=== PATIENT | male | born 1970 | race Caucasian/White ===

== ENCOUNTER 2021-01-12 23:24 | Observation (INO) | payer BC, SELFPAY ==
--- NOTE | ~2021-01-12 | CT_ITS ---
EXAMINATION: CT abdomen pelvis w con DATE: 01/13/2021 03:02 INDICATION: Epigastric abdominal pain. Leukocytosis. TECHNIQUE: Computed tomography (CT) of the abdomen and pelvis was performed with 100 mL Omnipaque 350 intravenous contrast. Automated exposure control and iterative reconstruction technique were employe d. The dose-length product was 505.74 mGy-cm. COMPARISON: None. FINDINGS: The visualized portions of the lung bases demonstrate mild atelectasis. No pleural effusion . The heart size is normal. No pericardial effusion. The liver, gallbladder, spleen, pancreas, adrena l glands, and kidneys are normal. There are scattered diverticula in the colon. There is fat strandin g around a diverticulum of the transverse colon with foci of extraluminal gas immediately adjacent to the diverticulum, consistent with diverticulitis. The appendix is normal. There are no pathologicall y enlarged lymph nodes. There is no free intraperitoneal fluid. There is mild thoracolumbar spondylos is. IMPRESSION: 1. Acute diverticulitis of the transverse colon with microperforation. No abscess. Reviewed, dictated and finalized at location A. IMPRESSION: 1. Acute diverticulitis of the transverse colon with microperforation. No absce ss.
[2021-01-12 23:26] VITALS: BP 153/92; PULSE 103; RESP 18; TEMP 36.3; O2SAT 98
[2021-01-12 23:44] LABS: Basophils Absolute Auto 0.1 K/mm3 (0.0-0.1); Basophils Percent Auto 0.6 % (0.2-1.2); Eosinophils Absolute Auto 0.5 K/mm3 (0-0.3); Hematocrit 40.9 % (42.0-52.0); Immature Granulocyte Absolute 0.06 K/mm3 (0.00-0.031); Immature Granulocyte Percent A 0.4 % (0-0.5); Lymphocytes Absolute Auto 1.66 K/mm3 (0.9-3.2); Mean Corpuscular HGB Conc 34.2 g/dl (32-36); Mean Corpuscular Hemoglobin 33.4 pg (26-34); Mean Corpuscular Volume 97.6 fl (80-100); Mean Platelet Volume 9.2 fl (7.4-10.4); Monocytes Absolute Auto 1.1 K/mm3 (0.1-0.6); Monocytes Percent Auto 7.5 % (2.6-8.5); Neutrophils Absolute Auto 11.7 K/mm3 (1.3-6.7); Neutrophils Percent Auto 77.5 % (45.5-73.1); Platelet Count Result 231 k/mm3 (150-375); Red Blood Count 4.19 M/mm3 (4.6-6.20); Red Cell Distribution Width 12.6 % (11.5-14.5); White Blood Count 15.1 K/mm3 (4.5-10.0)
[2021-01-12 23:54] LABS: Alanine Aminotransferase 24 U/L (4-50); Albumin Level 4.6 g/dL (3.5-5.1); Alkaline Phosphatase 91 U/L (38-126); Anion Gap 11 mmol/L (8-16); Aspartate Amino Transferase 32 U/L (17-59); Bilirubin,Total 0.6 mg/dL (0.2-1.3); Blood Urea Nitrogen 16 mg/dL (9-20); Calcium 9.5 mg/dL (8.4-10.2); Carbon Dioxide 22 mmol/L (22-30); Chloride 102 mmol/L (98-107); Estimated CRCL calculation 83 ml/min; Estimated Glomerular Filt Rate > 60; Glucose 137 mg/dL (65-110); Lipase 64 U/L (23-300); Potassium 3.9 mmol/L (3.4-5.0); Sodium 135 mmol/L (137-145)
[2021-01-13] VITALS (8 sets, daily range): BP systolic 119–149; BP diastolic 47–88; PULSE 67–89; RESP 15–18; TEMP 36.2–36.7; O2SAT 94–99; BMI 33.2
[2021-01-13 01:44] LABS: Add Urine Microscopic? NO; Appearance Urine Clear (Clear); Bilirubin Urine Negative (Negative); Blood Urine Negative (Negative); Color Urine Yellow (Yellow); Glucose Urine UA Negative (Negative); Ketones Urine Negative (Negative); Leukocyte Esterase Ur Negative LEU/UL (Negative); Nitrate Urine Negative (Negative); Protein Urine Negative (Negative); Specific Grav Ur 1.024 (1.001-1.035); Urobilinogen Urine Negative mg/dL (<2.0)
--- NOTE | 2021-01-13 02:22 | ED.ABDPAIN ---
HPI - Abdominal Pain General Chief Complaint: Abdominal Pain Stated Complaint: abd pain - band in the middle of stomach Time Seen by Provider: 01/13/21 01:57 History of Present Illness HPI narrative: Patient presents with abdominal pain. Patient for symptoms started today he describes a band like sensation over his upper abdomen. Symptoms are constant, radiate across his upper abdomen, no clear aggravating or alleviating symptoms. He reports subjective fevers. He denies any nausea vomiting or diarrhea. Denies any chest pain or shortness of breath. Denies any prior abdominal surgeries. Related Data Home Medications Medication Instructions Recorded Confirmed atorvastatin 10 mg PO DAILY 01/13/21 01/13/21 trazodone 100 mg PO HS PRN 01/13/21 01/13/21 Allergies Allergy/AdvReac Type Severity Reaction Status Date / Time banana Allergy Anaphylaxis Verified 01/13/21 06:13 lisinopril AdvReac Unknown cough Verified 01/13/21 06:13 Review of Systems Review of Systems: CONSTITUTIONAL: Denies fever, chills, or sweats. EYES: Denies visual changes, redness, or discharge. ENT: Denies rhinorrhea, congestion, sore throat, or otalgia. CARDIOVASCULAR: Denies chest pain, palpitations, or edema. RESPIRATORY: Denies cough or dyspnea. GASTROINTESTINAL: Denies nausea, vomiting, or diarrhea. GENITOURINARY: Denies dysuria or hematuria. SKIN: Denies rash or itching. MUSCULOSKELETAL: Denies back pain, joint pain, or myalgia. NEUROLOGIC: Denies headache, numbness, dizziness, or weakness. PSYCHIATRIC: Denies anxiety or depression. All systems reviewed & are unremarkable except as noted in HPI and below [facility] Past Medical History Medical History (Updated 01/13/21 @ 04:48 by Víctor Foreman MD) Strabismus Family History Family History (Updated 01/13/21 @ 06:25 by Ilana Louise RN) Father Diabetes mellitus Grandparent Family history of Hodgkin's lymphoma Grandparent Colon cancer Grandparent Hypertension Other Family history of lung cancer Social History Social History Smoking status: Never smoker Second hand tobacco smoke exposure: Yes Alcohol intake: current Drinks per week: 16 Substance use: current Substance use type: marijuana Last use: last week Spiritual care concerns: No Exam Narrative: GENERAL: Well-appearing, well-nourished, and in no acute distress. HEAD: Normocephalic, atraumatic. EYES: PERRLA and EOMI. ENT: Nares clear, no rhinorrhea or epistaxis. Mucous membranes moist. NECK: Supple. No masses. No JVD CHEST: Clear to auscultation. No respiratory distress. No wheezes rales or rhonchi HEART: Regular rate and rhythm. No murmur heard. Normal peripheral pulses. ABDOMEN: Mild tenderness with palpation in the epigastric area no rebound or guarding. Soft, nondistended. EXTREMITIES: Normal range of motion. No edema. SKIN: Warm, dry, no rash. NEURO: No focal deficits. Alert and oriented x3. PSYCH: Normal mood and affect. Course Vital Signs Vital signs: Vital Signs Temperature 36.3 C L 01/12/21 23:26 Pulse Rate 103 H 01/12/21 23:26 Respiratory Rate 18 01/12/21 23:26 Blood Pressure 153/92 H 01/12/21 23:26 Pulse Oximetry 98 01/12/21 23:26 Temperature 36.7 C 01/13/21 06:00 Pulse Rate 75 01/13/21 06:03 Respiratory Rate 16 01/13/21 06:03 Blood Pressure 135/82 01/13/21 06:03 Pulse Oximetry 96 01/13/21 06:03 MDM - Abdominal Pain MDM Narrative Medical decision making narrative: Patient presents with upper abdominal pain. Patient overall looks clinically well exam was notable for tenderness in the upper abdomen. Labs and imaging obtained. Labs notable for leukocytosis imaging concerning for diverticulitis with a perforation. Given imaging findings patient was admitted to the hospitalist team for further management. Antibiotics initiated in the ER. Patient comfortable with inpatient plan. Lab
[2021-01-13] MEDS: MAG HYDROX/AL HYDROX/SIMETH 30 ML UDC PO (02:58)
[2021-01-13] MEDS: LIDOCAINE HCL 2% VISC SOLN 15 ML UDC 20 ML PO (02:58)
[2021-01-13] MEDS: SODIUM CHLORIDE 0.9% IV 1,000 ML 999 ML IV CONT (02:59)
[2021-01-13] MEDS: metroNIDAZOLE 500 MG/ISO 100ML 500 MG/100 ML BAG 100 MG IVPB (04:51)
--- NOTE | 2021-01-13 05:06 | PC.NURSE ---
[facility] contacted at Dr Foreman request.
--- NOTE | 2021-01-13 05:35 | PC.NURSE ---
Attempted to give report to [address] [place] [address] at this time. Was informed that receiving RN is with a pt and will call back when available.
--- NOTE | 2021-01-13 06:10 | ADMGEN ---
This patient, Den Luna, was admitted to Medical Room 348-01. Patient/family oriented to hospital policies and general routines including ID bracelet, bed and alarms, visiting hours, pain management, procedures, bathroom and other care routines, personal items, smoking policy, room service/diet, and visiting hours. Information on how to activate the Rapid Response Team has been discussed. Patient/Family are encouraged to report perceived risks to care and to ask questions if they do not understand what they are told or what they should do.
[2021-01-13] MEDS: SODIUM CHLORIDE 0.9% IV 1,000 ML 125 ML IV CONT (06:12)
--- NOTE | 2021-01-13 08:00 | PM.IMHP ---
H&P: HPI History of Present Illness Date/Time: 01/13/21 08:00 Chief Complaint: abdominal pain Narrative: patient is a 50-year-old male with past medical history of gout, dyslipidemia presenting with about a few hours of abdominal pain. Per patient yesterday around 4 or 5:00 p.m., he started experiencing a dull epigastric pain that was nonradiating. Nonexertional, not associated with any other symptoms. Although he does note having some intermittent chills. He came to the hospital to prevent pain from getting worse. Never had pain like this before. Of note his grandmother on his father's side had diverticulitis. Other than gout and cholesterol medication patient does not report taking anything currently. Past medical history: Gout, dyslipidemia Allergies: Banana, serious reactions; documented cough with lisinopril Medications: Allopurinol, atorvastatin; noted trazodone is documented, but patient did not state he takes this Family history: Diabetes in the family, diverticulitis in paternal grandmother Social history: Occasional alcohol, occasional marijuana, no other drugs, no tobacco ER course: Vitals unremarkable, leukocytosis to 15 CT abdomen and pelvis showing diverticulitis with micro perforation Evaluated by General surgery, not a candidate for surgery at this time blood cultures obtained, result pending patient has been on saline, and antibiotic in the emergency room Review of Systems Review of Systems: All systems reviewed & are unremarkable except as noted in HPI and below PMFSH Past Medical History Medical History (Updated 01/13/21 @ 08:50 by Lazara James MD) Strabismus Family History Family History Father Diabetes mellitus Grandparent Family history of Hodgkin's lymphoma Grandparent Colon cancer Grandparent Hypertension Other Family history of lung cancer Social History Social History Smoking status: Never smoker Second hand tobacco smoke exposure: Yes Alcohol intake: current Drinks per week: 16 Substance use: current Substance use type: marijuana Last use: last week Spiritual care concerns: No Meds Home Medications and Allergies Home Medications Medication Instructions Recorded Confirmed Type allopurinol 300 mg tablet 300 mg PO DAILY #90 tablet 11/01/20 01/13/21 Rx atorvastatin 10 mg PO DAILY 01/13/21 01/13/21 History trazodone 100 mg PO HS PRN 01/13/21 01/13/21 History Allergies Allergy/AdvReac Type Severity Reaction Status Date / Time banana Allergy Anaphylaxis Verified 01/13/21 06:13 lisinopril AdvReac Unknown cough Verified 01/13/21 06:13 Vital Signs Vital Signs - 24 hr 01/12/21 23:26 01/13/21 01:28 01/13/21 04:09 Temperature 97.4 F L Pulse Rate 103 H 89 82 Respiratory Rate 18 15 18 Blood Pressure 153/92 H 132/85 119/47 L Pulse Oximetry 98 97 95 01/13/21 04:57 01/13/21 06:00 01/13/21 06:03 Temperature 98.0 F Pulse Rate 73 71 75 Respiratory Rate 18 18 16 Blood Pressure 133/78 149/81 H 135/82 Pulse Oximetry 96 97 96 01/13/21 14:25 Temperature 97.2 F L Pulse Rate 67 Respiratory Rate 18 Blood Pressure 130/71 Pulse Oximetry 99 Exam Const: General: no acute distress Neck: Neck: no JVD Resp: Effort & Inspection: normal respiratory effort Auscultation: clear to auscultation bilaterally Cardio: Rate: regular rate Rhythm: regular rhythm GI: GI Palp: Yes Soft to palpation and No Tenderness to palpation present (GI) Other: some tenderness to gentle palpation in the epigastric area; Bowel sounds audible; No scars or bruising; No rigidity; negative Poon sign, negative psoas and Rovsing's sign, no rebound tenderness H&P: Results Labs Labs: Short CBC 01/12/21 Range/Units 23:33 WBC 15.1 H (4.5-10.0) K/mm3 Hgb 14.0 (14.0-18.0) g/dL Hct 40.9 L (42.0-52.0) % Plt Count
--- NOTE | 2021-01-13 08:43 | PM.CNGS ---
Assessment and Plan Assessment and plan (1) Diverticulitis of intestine with perforation without abscess or bleeding: Code(s): K57.80 - Diverticulitis of intestine, part unspecified, with perforation and abscess without bleeding Status: Acute Assessment and Plan: exam benign, cont conservative management c IV abx, serial exams, start clears History of Present Illness Consult details Consult date: 01/13/21 Reason for consult: abdominal pain Requesting physician: Magdy Garrido MD Narrative: Pt is a 50 y/o M presenting to ED c/o severe upper abdominal pain over last few days. Pt reports pain is sharp, constant and worst in LUQ. Pt reports associated anorexia, nausea. Pt also reports subjective f/c, weakness. Pt denies any previous episodes. Review of Systems Constitutional: Constitutional: Reports anorexia, Reports body ache(s), Reports chills, Denies excessive sweating, Reports fatigue, Reports fever(s), Denies increased appetite, Reports lethargy, Reports malaise, Reports poor appetite, Reports weakness, Denies weight gain and Denies weight loss Eyes: Eyes: Reports no additional eye complaints ENT: Reports system reviewed and no additional complaints, except as documented Cardiovascular: Cardiovascular: Reports no additional cardiovascular complaints Respiratory: Respiratory: Reports no additional respiratory complaints Gastrointestinal: Gastrointestinal: Reports as per HPI, Reports abdominal pain, Reports bloating, Denies change in bowel habits, Denies change in stool character, Denies constipation, Reports GI cramping, Denies early satiety, Denies heartburn, Denies diarrhea, Denies loose stools, Reports nausea, Denies vomiting and Denies hematemesis Genitourinary: Genitourinary: Reports no additional male genitourinary complaints Musculoskeletal: Musculoskeletal: Reports no additional musculoskeletal complaints Integumentary/Breasts: Skin/Breast: Reports system reviewed and no additional complaints, except as docu Neurologic: Reports system reviewed and no additional complaints, except as documented Psychiatric: Psychiatric: Reports no additional psychiatric complaints Endocrine: Endocrine: Reports no additional endocrine complaints Hematologic/Lymphatic: Hematologic/Lymphatic: Reports no additional hematologic/lymphatic complaints Allergic/Immunologic: Allergic/Immunologic: Reports no additional allergic/immunologic complaints PMFSH Past Medical History Medical History (Updated 01/13/21 @ 08:50 by Lazara James MD) Strabismus Family History Family History Father Diabetes mellitus Grandparent Family history of Hodgkin's lymphoma Grandparent Colon cancer Grandparent Hypertension Other Family history of lung cancer Social History Social History Smoking status: Never smoker Second hand tobacco smoke exposure: Yes Alcohol intake: current Drinks per week: 16 Substance use: current Substance use type: marijuana Last use: last week Spiritual care concerns: No Comments pt denies any previous abd surgery Meds Home Medications and Allergies Home Medications Medication Instructions Recorded Confirmed Type allopurinol 300 mg tablet 300 mg PO DAILY #90 tablet 11/01/20 01/13/21 Rx atorvastatin 10 mg PO DAILY 01/13/21 01/13/21 History trazodone 100 mg PO HS PRN 01/13/21 01/13/21 History Allergies Allergy/AdvReac Type Severity Reaction Status Date / Time banana Allergy Anaphylaxis Verified 01/13/21 06:13 lisinopril AdvReac Unknown cough Verified 01/13/21 06:13 Vital Signs Vital Signs - 24 hr 01/12/21 23:26 01/13/21 01:28 01/13/21 04:09 Temperature 36.3 C L Pulse Rate 103 H 89 82 Respiratory Rate 18 15 18 Blood Pressure 153/92 H 132/85 119/47 L Pulse Oximetry 98 97 95 01/13/21 04:57 01/13/21 06:00 01/13/21 06:03 Temperature
[2021-01-13] MEDS: HYDROmorphone HCL INJ (*CRX) 1 MG/ML SYR 0.5 MG IV PUSH ×3 (10:30→21:54)
[2021-01-13 11:35] LABS: Lactic Acid Reflex 0.9 mmol/L (0.7-2.1)
[2021-01-14] MEDS: SODIUM CHLORIDE 0.9% IV 1,000 ML 125 ML IV CONT ×2 (01:44→10:44)
[2021-01-14 05:52] VITALS: BP 128/76; PULSE 76; RESP 18; TEMP 36.1; O2SAT 96
[2021-01-14 06:11] LABS: Basophils Percent Auto 0.5 % (0.2-1.2); Eosinophils Absolute Auto 0.3 K/mm3 (0-0.3); Eosinophils Percent Auto 3.7 % (0-4.4); Hematocrit 36.3 % (42.0-52.0); Immature Granulocyte Absolute 0.03 K/mm3 (0.00-0.031); Immature Granulocyte Percent A 0.4 % (0-0.5); Lymphocytes Absolute Auto 1.46 K/mm3 (0.9-3.2); Lymphocytes Percent Auto 18.6 % (18.3-44.2); Mean Corpuscular HGB Conc 33.1 g/dl (32-36); Mean Corpuscular Hemoglobin 33.7 pg (26-34); Mean Platelet Volume 9.6 fl (7.4-10.4); Monocytes Absolute Auto 0.5 K/mm3 (0.1-0.6); Monocytes Percent Auto 6.9 % (2.6-8.5); Neutrophils Absolute Auto 5.5 K/mm3 (1.3-6.7); Neutrophils Percent Auto 69.9 % (45.5-73.1); Platelet Count Result 181 k/mm3 (150-375); Red Blood Count 3.56 M/mm3 (4.6-6.20); Red Cell Distribution Width 12.6 % (11.5-14.5); White Blood Count 7.9 K/mm3 (4.5-10.0)
[2021-01-14 06:28] LABS: Alanine Aminotransferase 14 U/L (4-50); Albumin Level 3.6 g/dL (3.5-5.1); Alkaline Phosphatase 58 U/L (38-126); Anion Gap 5 mmol/L (8-16); Aspartate Amino Transferase 20 U/L (17-59); Bilirubin,Total 0.8 mg/dL (0.2-1.3); Blood Urea Nitrogen 6 mg/dL (9-20); Calcium 8.9 mg/dL (8.4-10.2); Carbon Dioxide 26 mmol/L (22-30); Chloride 106 mmol/L (98-107); Estimated CRCL calculation 83 ml/min; Estimated Glomerular Filt Rate > 60; Glucose 107 mg/dL (65-110); Magnesium 2.3 mg/dL (1.6-2.3); Phosphorus 3.3 mg/dL (2.5-4.5); Potassium 4.3 mmol/L (3.4-5.0); Sodium 137 mmol/L (137-145)
[2021-01-14] MEDS: ENOXAPARIN 40 MG/0.4 ML SYRINGE SUB-Q (08:51)
[2021-01-14] MEDS: ATORVASTATIN 10 MG TABLET PO (08:51)
--- NOTE | 2021-01-14 10:20 | PM.PNGS ---
Progress Note: A&P Assessment and Plan (1) Diverticulitis of intestine with perforation without abscess or bleeding: Code(s): K57.80 - Diverticulitis of intestine, part unspecified, with perforation and abscess without bleeding Status: Acute Assessment and Plan: exam much improved, low residue diet, abx, home if ok c primary team and toni diet c po abx x 7 days, f/u 2 wks Subjective Subjective Date/Time Seen: 01/14/21 10:20 feels much better, no pain, toni clears Review of Systems Review of Systems: All systems reviewed & are unremarkable except as noted in HPI and below Exam Const: General: cooperative, healthy appearing, comfortable and no acute distress Nutritional Appearance: obese Orientation/consciousness: patient oriented x3 Resp: Effort & Inspection: normal respiratory effort Auscultation: clear to auscultation bilaterally Cardio: Rate: regular rate Rhythm: regular rhythm GI: Inspection: normal to inspection and non-distended GI Palp: Yes Soft to palpation and No Tenderness to palpation present (GI) Objective Data Vital Signs Vital Signs: Vital Signs - 24 hr 01/13/21 14:25 01/13/21 17:37 01/13/21 21:59 Temperature 36.2 C L 36.2 C L Pulse Rate 67 67 Respiratory Rate 18 17 Blood Pressure 130/71 137/88 Pulse Oximetry 99 94 99 01/14/21 05:52 Temperature 36.1 C L Pulse Rate 76 Respiratory Rate 18 Blood Pressure 128/76 Pulse Oximetry 96 Intake/Output Intake/Output: Intake & Output 01/11/21 01/12/21 01/13/21 01/14/21 23:59 23:59 23:59 23:59 Intake Total 3530 600 Output Total 1875 1550 Balance 1655 -950 Meds/Results Medications: Active Medications Generic Name Dose Route Start Last Admin Trade Name Freq PRN Reason Stop Dose Admin Atorvastatin Calcium 10 mg 01/13/21 09:00 01/14/21 08:51 Atorvastatin 10 Mg Tablet PO 10 mg DAILY DARRYL Administration Enoxaparin Sodium 40 mg 01/13/21 09:00 01/14/21 08:51 Enoxaparin 40 Mg/0.4 Ml Syringe SUB-Q 40 mg DAILY DARRYL Administration Hydromorphone HCl 0.5 mg 01/13/21 04:45 01/13/21 21:54 Hydromorphone Hcl Inj (*Crx) 1 Mg/Ml Syr IV PUSH 0.5 mg Q4H PRN Administration Pain Rated 7-10 Sodium Chloride 1,000 mls @ 125 mls/hr 01/13/21 04:45 01/14/21 01:44 Normal Saline Iv IV CONT 125 mls/hr .Q8H DARRYL Administration Piperacillin Sod/Tazobactam Sod 4.5 gm in 100 mls @ 200 mls/hr 01/13/21 10:00 01/14/21 06:15 Zosyn 4.5 Gm/D5w 100 Ml IVPB Infused Q6HR DARRYL Infusion Radiology Results: ITS Impressions Abdomen/Pelvis CT 01/13/21 07:58 IMPRESSION: 1. Acute diverticulitis of the transverse colon with microperforation. No abscess. Labs Labs: Laboratory Results - last 24 hr 01/13/21 01/14/21 01/14/21 11:05 05:38 05:38 WBC 7.9 RBC 3.56 L Hgb 12.0 L Hct 36.3 L MCV 102.0 H MCH 33.7 MCHC 33.1 RDW 12.6 Plt Count 181 MPV 9.6 Immature Gran % (Auto) 0.4 Neut % (Auto) 69.9 Lymph % (Auto) 18.6 [place] % (Auto) 6.9 Eos % (Auto) 3.7 Baso % (Auto) 0.5 Lymph # (Auto) 1.46 [place] # (Auto) 0.5 Eos # (Auto) 0.3 Baso # (Auto) 0.0 Abs Immat Gran (auto) 0.03 Absolute Neuts (auto) 5.5 Absolute Nucleated RBC 0.0 Nucleated RBC % 0.0 Sodium 137 Potassium 4.3 Chloride 106 Carbon Dioxide 26 Anion Gap 5 L BUN 6 L D Creatinine 0.90 Estim Creat Clear Calc 83 Estimated GFR > 60 Glucose 107 Lactic Acid 0.9 Calcium 8.9 Phosphorus 3.3 Magnesium 2.3 Total Bilirubin 0.8 AST 20 ALT 14 Alkaline Phosphatase 58 Total Protein 7.0 Albumin 3.6
--- NOTE | 2021-01-14 11:58 | PM.IMPN ---
Progress Note: A&P Assessment and Plan (1) Diverticulitis: Code(s): K57.92 - Diverticulitis of intestine, part unspecified, without perforation or abscess without bleeding Status: Acute Assessment and Plan: Leukocytosis to 15, and CT abdomen pelvis showing diverticulitis with micro perforation Blood cultures negative to date Was initiated Zosyn 01/13 Continue IV hydration running at 125 mL/hr of normal saline Given micro perforation, surgery was consulted from the emergency room, however they report the exam is benign, and would opt for conservative management; discussed this in detail with patient, he is in the amenable. Given improvement in his pain, plan per surgery with low residue diet, antibiotics, and DC home later today with follow-up in 2 weeks. Will continue antibiotics for next 7 days (2) Essential (primary) hypertension: Code(s): I10 - Essential (primary) hypertension Status: Acute Assessment and Plan: Blood pressure well controlled here, will continue to monitor Subjective Date/time seen: 01/14/21 11:58 Abdominal pain much improved. No nausea or vomiting. Tolerating clear liquids. Hemodynamically stable. Afebrile. Review of Systems Review of Systems: All systems reviewed & are unremarkable except as noted in HPI and below Exam Narrative: Gen: Alert, NAD Abd: Soft, NT, ND Heart: RRR Lungs: CTAB Ext: No lower extremity edema Objective Data Vital Signs Vital Signs: Vital Signs - 24 hr 01/13/21 14:25 01/13/21 17:37 01/13/21 21:59 Temperature 97.2 F L 97.1 F L Pulse Rate 67 67 Respiratory Rate 18 17 Blood Pressure 130/71 137/88 Pulse Oximetry 99 94 99 01/14/21 05:52 Temperature 97 F L Pulse Rate 76 Respiratory Rate 18 Blood Pressure 128/76 Pulse Oximetry 96 Intake/Output Intake/Output: Intake & Output 01/11/21 01/12/21 01/13/21 01/14/21 23:59 23:59 23:59 23:59 Intake Total 3530 1840 Output Total 1875 1825 Balance 1655 15 Meds/Results Medications: Active Medications Generic Name Dose Route Start Last Admin Trade Name Freq PRN Reason Stop Dose Admin Atorvastatin Calcium 10 mg 01/13/21 09:00 01/14/21 08:51 Atorvastatin 10 Mg Tablet PO 10 mg DAILY DARRYL Administration Enoxaparin Sodium 40 mg 01/13/21 09:00 01/14/21 08:51 Enoxaparin 40 Mg/0.4 Ml Syringe SUB-Q 40 mg DAILY DARRYL Administration Hydromorphone HCl 0.5 mg 01/13/21 04:45 01/13/21 21:54 Hydromorphone Hcl Inj (*Crx) 1 Mg/Ml Syr IV PUSH 0.5 mg Q4H PRN Administration Pain Rated 7-10 Sodium Chloride 1,000 mls @ 125 mls/hr 01/13/21 04:45 01/14/21 10:44 Normal Saline Iv IV CONT 125 mls/hr .Q8H DARRYL Administration Piperacillin Sod/Tazobactam Sod 4.5 gm in 100 mls @ 200 mls/hr 01/13/21 10:00 01/14/21 06:15 Zosyn 4.5 Gm/D5w 100 Ml IVPB Infused Q6HR DARRYL Infusion Radiology Results: ITS Impressions Abdomen/Pelvis CT 01/13/21 07:58 IMPRESSION: 1. Acute diverticulitis of the transverse colon with microperforation. No abscess. Labs Labs: Laboratory Results - last 24 hr 01/14/21 01/14/21 05:38 05:38 WBC 7.9 RBC 3.56 L Hgb 12.0 L Hct 36.3 L MCV 102.0 H MCH 33.7 MCHC 33.1 RDW 12.6 Plt Count 181 MPV 9.6 Immature Gran % (Auto) 0.4 Neut % (Auto) 69.9 Lymph % (Auto) 18.6 [place] % (Auto) 6.9 Eos % (Auto) 3.7 Baso % (Auto) 0.5 Lymph # (Auto) 1.46 [place] # (Auto) 0.5 Eos # (Auto) 0.3 Baso # (Auto) 0.0 Abs Immat Gran (auto) 0.03 Absolute Neuts (auto) 5.5 Absolute Nucleated RBC 0.0 Nucleated RBC % 0.0 Sodium 137 Potassium 4.3 Chloride 106 Carbon Dioxide 26 Anion Gap 5 L BUN 6 L D Creatinine 0.90 Estim Creat Clear Calc 83 Estimated GFR > 60 Glucose 107 Calcium 8.9 Phosphorus 3.3 Magnesium 2.3 Total Bilirubin 0.8 AST 20 ALT 14 Alkaline Phosphatase 58 Total Protein 7.0 Albumin 3.6
--- NOTE | 2021-01-14 12:46 | PM.DS ---
DS: Admitting Diagnosis Discharge Date 01/14/2021 Admitting Diagnosis abdominal pain acute diverticulitis DS: Discharge Diagnosis Discharge Diagnosis (1) Diverticulitis of intestine with perforation without abscess or bleeding: Code(s): K57.80 - Diverticulitis of intestine, part unspecified, with perforation and abscess without bleeding Status: Acute (2) Leukocytosis: Qualifiers: Leukocytosis type: unspecified Qualified Code(s): D72.829 - Elevated white blood cell count, unspecified Code(s): D72.829 - Elevated white blood cell count, unspecified Status: Acute (3) Essential (primary) hypertension: Code(s): I10 - Essential (primary) hypertension Status: Acute (4) Gout, unspecified: Code(s): M10.9 - Gout, unspecified Status: Acute (5) Mixed hyperlipidemia: Code(s): E78.2 - Mixed hyperlipidemia Status: Acute DS: Summary Hospital Course Hospital Course: This is a very pleasant 50-year-old gentleman with past medical history of hyperlipidemia and gout, who presented to the emergency department on 01/13 for evaluation of abdominal pain. CT scan of the abdomen showed evidence of acute diverticulitis of the transverse colon with microperforation. No abscess. He was admitted to the hospital, IV hydration was initiated, antibiotics with Zosyn. He was visited by General surgery. No surgery was indicated. He was hemodynamically stable. His symptoms quickly improved, he was able to be initiated on clear liquids which he tolerated, he was instructed to maintain a low residual diet and gradually increase his oral intake over the next few days to his regular diet. He should monitor closely for any recurrence of abdominal pain given the micro perforation. He initially did have elevated white cell count that normalized on day of discharge. He will finish 7 more days of antibiotics. Through his stay he was hemodynamically stable and afebrile. Time Spent with Patient Time attestation: Total time spent providing and/or coordinating discharge services: 27 min Exam Narrative: Gen: Alert, NAD Abd: Soft, NT, ND Heart: RRR Lungs: CTAB Ext: No lower extremity edema DS: Data Data Completed and Pending Labs on day of discharge: Labs from last 24 hours 01/14/21 01/14/21 05:38 05:38 WBC 7.9 RBC 3.56 L Hgb 12.0 L Hct 36.3 L MCV 102.0 H MCH 33.7 MCHC 33.1 RDW 12.6 Plt Count 181 MPV 9.6 Immature Gran % (Auto) 0.4 Neut % (Auto) 69.9 Lymph % (Auto) 18.6 Eagle % (Auto) 6.9 Eos % (Auto) 3.7 Baso % (Auto) 0.5 Lymph # (Auto) 1.46 Eagle # (Auto) 0.5 Eos # (Auto) 0.3 Baso # (Auto) 0.0 Abs Immat Gran (auto) 0.03 Absolute Neuts (auto) 5.5 Absolute Nucleated RBC 0.0 Nucleated RBC % 0.0 Sodium 137 Potassium 4.3 Chloride 106 Carbon Dioxide 26 Anion Gap 5 L BUN 6 L D Creatinine 0.90 Estim Creat Clear Calc 83 Estimated GFR > 60 Glucose 107 Calcium 8.9 Phosphorus 3.3 Magnesium 2.3 Total Bilirubin 0.8 AST 20 ALT 14 Alkaline Phosphatase 58 Total Protein 7.0 Albumin 3.6 Preliminary micro results at discharge 01/13/21 11:03 Blood Culture - Preliminary Blood 01/13/21 11:05 Blood Culture - Preliminary Blood Discharge Plan Discharge Consulting providers: Lazara James Discharging Clinician: Hermilo Martinez Anticipated Discharge Date/Time: 01/14/21 12:50 Patient Disposition: Home, Self-Care Activity: as tolerated Diet: low fiber Discharge Instructions: 1. maintain a low residue diet, advance from clear liquids slowly, over the next few days, and monitor for any recurrence of abdominal pain or other symptoms such as nausea, vomiting, or blood in the stool. If any develop, seek medical attention. 2. He will be discharged on 7 day course of antibiotics ( levofloxacin and Flagyl), please continue daily until you finish the pills 3.
== END 2021-01-14 13:45 | disposition home or self-care (01) ==
LOC: ANHED 01-13 04:48 → ANH3MED 01-13 11:19
PROVIDERS: Internal Medicine; Admitting Provider Internal Medicine; Emergency Provider Emergency Medicine; PCP Family Medicine; Visit Provider Internal Medicine Nephrology
DX: K57.80 Diverticulitis of intestine, part unspecified, with perforation and abscess without bleeding (principal); D72.829 Elevated white blood cell count, unspecified; I10 Essential (primary) hypertension; M10.9 Gout, unspecified; E78.2 Mixed hyperlipidemia
CPT/HCPCS: 36415; 74177; 80053; 81003; 83605; 83690; 83735; 84100; 85025; 87040; 96361; 96365; 96366; 96367; 96372; 96375; 96376; 99285; A9270; G0378; J0131; J1170; J1650; J1956; J2543; J7030; Q9967

== ENCOUNTER 2021-04-21 01:03 | Day surgery (SDC) | payer BC, SELFPAY ==
[2021-04-12 13:19] VITALS: BMI 28.2
--- NOTE | 2021-04-21 11:01 | PM.HPGS ---
History of Present Illness History of Present Illness Consent: Risks, benefits, and alternatives have been discussed and questions answered. Patient agrees to proceed with procedure. Chief complaint: neoplasm screening Narrative: Den Luna is a 50 year old male Referred for colon cancer screening Review of Systems Review of Systems: All systems reviewed & are unremarkable except as noted in HPI and below PMFSH Past Medical History Medical History BMI 30.0-30.9,adult BMI 31.0-31.9,adult Diverticular disease Elective mutism as adjustment reaction Elevated fasting glucose Encounter for long-term (current) use of medications Encounter for preventive health examination Encounter for screening for malignant neoplasm of colon Family history of diabetes mellitus Hx of primary hypertension Impacted cerumen of both ears Mixed hyperlipidemia On prison drug therapy Strabismus Vitamin D deficiency Family History Family History Father Diabetes mellitus Cancer Depression with anxiety Grandparent Family history of Hodgkin's lymphoma Hypertension Cerebrovascular accident Depression Grandparent Colon cancer Grandparent Hypertension Other Family history of lung cancer Social History Social History Smoking status: Never smoker Second hand tobacco smoke exposure: Yes Alcohol intake: current Drinks per week: 15 Substance use: never Substance use type: does not use Last use: last week Living arrangements: alone Spiritual care concerns: No Meds Home Medications and Allergies Home Medications Medication Instructions Recorded Confirmed Type atorvastatin 20 mg tablet 20 mg PO DAILY #90 tablet 03/15/21 04/12/21 Rx allopurinol 300 mg tablet 300 mg PO DAILY #90 tablet 04/07/21 04/12/21 Rx cholecalciferol (vitamin D3) 1,250 1,250 mcg PO WEEKLY #9 cap 04/07/21 04/12/21 Rx mcg (50,000 unit) capsule trazodone 100 mg tablet 100 mg PO QHS PRN #30 tablet 04/15/21 Rx Allergies Allergy/AdvReac Type Severity Reaction Status Date / Time banana Allergy Anaphylaxis Verified 04/21/21 11:17 lisinopril AdvReac Unknown cough Verified 04/21/21 11:17 Exam Const: General: alert Orientation/consciousness: patient oriented x3 Resp: Auscultation: clear to auscultation bilaterally Cardio: Rhythm: regular rhythm GI: GI Palp: Yes Soft to palpation and No Tenderness to palpation present (GI) Neuro: General: patient oriented x3 Assessment and Plan Assessment and plan (1) Encounter for screening for malignant neoplasm of colon: Code(s): Z12.11 - Encounter for screening for malignant neoplasm of colon Status: Acute Assessment and Plan: Colonoscopy with possible biopsy or polypectomy or cautery or injection of substances.
[2021-04-21 11:18] VITALS: BP 140/79; PULSE 92; RESP 18; TEMP 36.1; O2SAT 99
--- NOTE | 2021-04-21 11:21 | WPDANESEPPF ---
Anes - Initial Pre Proc Eval Procedure: Operation Date: 04/21/21 12:30 Proposed Procedures p Screening Colonoscopy - Cipriano Fregoso MD Date/Time: 04/21/21 11:21 Surgeon: Cipriano Fregoso MD Pre Op Diagnosis: neoplasm screening Patient Data Age: 50 Gender: M Height: 1.75 m Weight: 85.7 kg Last Vital Signs Temp 36.1 C L 04/21/21 11:18 Pulse 92 04/21/21 11:18 Resp 18 04/21/21 11:18 BP 140/79 04/21/21 11:18 Pulse Ox 99 04/21/21 11:18 Allergies Allergy/AdvReac Type Severity Reaction Status Date / Time banana Allergy Anaphylaxis Verified 04/21/21 11:17 lisinopril AdvReac Unknown cough Verified 04/21/21 11:17 Home Medications Medication Instructions Recorded Confirmed Type atorvastatin 20 mg tablet 20 mg PO DAILY #90 tablet 03/15/21 04/12/21 Rx allopurinol 300 mg tablet 300 mg PO DAILY #90 tablet 04/07/21 04/12/21 Rx cholecalciferol (vitamin D3) 1,250 1,250 mcg PO WEEKLY #9 cap 04/07/21 04/12/21 Rx mcg (50,000 unit) capsule trazodone 100 mg tablet 100 mg PO QHS PRN #30 tablet 04/15/21 04/21/21 Rx Patient hx anesthesia problems: none Family hx anesthesia problems: none Results Review: All pre-operative results and documents have been reviewed as part of the pre-operative evaluation. [facility] Past Medical History Medical History BMI 30.0-30.9,adult BMI 31.0-31.9,adult Diverticular disease Elective mutism as adjustment reaction Elevated fasting glucose Encounter for long-term (current) use of medications Encounter for preventive health examination Encounter for screening for malignant neoplasm of colon Family history of diabetes mellitus Hx of primary hypertension Impacted cerumen of both ears Mixed hyperlipidemia On buttermaker drug therapy Strabismus Vitamin D deficiency Family History Family History Father Diabetes mellitus Cancer Depression with anxiety Grandparent Family history of Hodgkin's lymphoma Hypertension Cerebrovascular accident Depression Grandparent Colon cancer Grandparent Hypertension Other Family history of lung cancer Social History Social History Smoking status: Never smoker Second hand tobacco smoke exposure: Yes Alcohol intake: current Drinks per week: 15 Substance use: never Substance use type: does not use Last use: last week Living arrangements: alone Spiritual care concerns: No Anes - Eval Final PreProcedure Day of Procedure 04/21/21 11:21 Patient weight: overweight Heart: regular rate and rhythm Lungs: clear to auscultation and normal air movement Airway: Mallampati scale class II Neurological: alert and oriented Last oral intake: >/= 8 hours ASA classification: III Emergent: no Anesthetic plan: proceed Anesthesia type and monitoring: general GIVS and standard monitoring Results Review: All pre-operative results and documents have been reviewed as part of the pre-operative evaluation. Informed Consent: The patient's anesthetic plan and its attendant risks and benefits were discussed with the patient/family/POA. Questions were solicited and answers provided to the satisfaction of the patient/family/POA.
[2021-04-21] MEDS: LACTATED RINGERS 1,000 ML 150 ML IV CONT (11:24)
[2021-04-21 12:23] VITALS: BP 124/75; PULSE 86; RESP 15; O2SAT 99
[2021-04-21 12:33] VITALS: BP 126/81; PULSE 74; RESP 15; O2SAT 99
== END 2021-04-21 12:53 | disposition home or self-care (01) ==
PROVIDERS: PCP Internal Medicine; Visit Provider Internal Medicine Gastroenterology
PROC: 0DJD8ZZ Inspection of Lower Intestinal Tract, Via Natural or Artificial Opening Endoscopic (ICD-10-PCS; CPT 45378; principal; 2021-04-21 12:30)
DX: Z12.11 Encounter for screening for malignant neoplasm of colon (principal); K57.30 Diverticulosis of large intestine without perforation or abscess without bleeding; K63.5 Polyp of colon; E78.2 Mixed hyperlipidemia; E55.9 Vitamin D deficiency, unspecified
CPT/HCPCS: 45385; J2001; J2704; J7120

== ENCOUNTER 2021-08-05 13:51 | Outpatient (CLI) | payer BC, SELFPAY ==
--- NOTE | ~2021-08-05 | CT_ITS ---
EXAMINATION: CT abdomen pelvis w con DATE: 08/05/2021 14:57 INDICATION: Abdominal pain TECHNIQUE: Computed tomography (CT) of the abdomen and pelvis was performed with 100 CC Omnipaque 350 intravenous contrast. Automated exposure control and iterative reconstruction technique were employe d. Exam dose: 551.52 mGy-cm total exam DLP. COMPARISON: 01/13/2021 CT abdomen pelvis FINDINGS: The lung bases are clear of infiltrate or consolidation. Normal heart size. No pericardial or pleural effusion. The liver, gallbladder, bile ducts, spleen, pancreas and pancreatic duct and adrenal glands appear no rmal. Approximately 5 mm right renal cyst. The kidneys are otherwise unremarkable. No urinary tract calculu s or hydroureteronephrosis. Normal caliber of the abdominal aorta. No intraperitoneal or retroperitoneal or pelvic mass lesion or adenopathy or ascites. The urinary bladder is unremarkable. Normal appendix. There is diverticulosis of left and right colon. There is prominent thickening of the wall of the distal descending and proximal sigmoid colon with ve ry prominent pericolic fat stranding and thickening of the adjacent anterior pararenal and laterocona l fascia. The findings are consistent with acute diverticulitis at the junction of the distal descend ing and proximal sigmoid colon in the left lower quadrant. No abscess cavity is identified. No bowel obstruction or free intraperitoneal air is noted. IMPRESSION: Acute diverticulitis at the junction of the distal descending and proximal sigmoid colon Diverticulosis of left and right colon Reviewed, dictated and finalized at [facility] Reviewed, dictated and finalized at [facility].
[2021-08-05 14:22] LABS: Basophils Absolute Auto 0.1 K/mm3 (0.0-0.1); Basophils Percent Auto 0.5 % (0.2-1.2); Eosinophils Percent Auto 0.3 % (0-4.4); Hematocrit 40.1 % (42.0-52.0); Hemoglobin 13.9 g/dL (14.0-18.0); Immature Granulocyte Absolute 0.04 K/mm3 (0.00-0.031); Immature Granulocyte Percent A 0.3 % (0-0.5); Lymphocytes Absolute Auto 1.42 K/mm3 (0.9-3.2); Mean Corpuscular HGB Conc 34.7 g/dl (32-36); Mean Corpuscular Hemoglobin 33.3 pg (26-34); Mean Corpuscular Volume 95.9 fl (80-100); Mean Platelet Volume 9.1 fl (7.4-10.4); Monocytes Percent Auto 7.7 % (2.6-8.5); Neutrophils Absolute Auto 10.4 K/mm3 (1.3-6.7); Neutrophils Percent Auto 80.2 % (45.5-73.1); Platelet Count Result 234 k/mm3 (150-375); Red Blood Count 4.18 M/mm3 (4.6-6.20); White Blood Count 12.9 K/mm3 (4.5-10.0)
== END 2021-08-05 13:52 | disposition home or self-care (01) ==
PROVIDERS: PCP Internal Medicine; Visit Provider Internal Medicine
DX: K57.32 Diverticulitis of large intestine without perforation or abscess without bleeding (principal)
CPT/HCPCS: 36415; 74177; 85025; Q9967

== ENCOUNTER 2023-05-29 08:36 | Outpatient (CLI) | payer BC, OTHER, SELFPAY ==
--- NOTE | 2023-05-29 08:41 | EST_ITS ---
Patient Info Name: Den Luna Age: 53 years : 1970 Gender: Male Ht: 69 in Wt: 190 lbs BSA: 2.07 m2 HR: 66 bpm BP: 128 / 87 mmHg Exam Date: 05/29/2023 8:52 AM Exam Location: Echo Lab Patient Status: Outpatient Admit Date: 05/29/2023 Staff Ordering Physician: David Pickett MD Diabetes Trainer: Marina Garcia RDCS Attending Provider: DR. CHAPPELL Referring Physician: Nieves ABREU; Exercise Technologist: Marina Garcia RDCS Exercise Physician: Aldair Chappell DO Exam Type: CA stress echo Study Info Indications R07.9 - Chest pain, unspecified Treadmill exercise stress echocardiogram is performed. Summary 1. 1. Negative Ulisses exercise stress test for ischemic ST changes by ECG criteria. 2. 2. Good functional capacity, achieving 12 METs of workload. 3. 3. Appropriate HR response to exercise. 4. 4. Appropriate HR recovery at 1 minute post exercise. 5. 5. Negative stress echocardiogram for ischemia by wall motion analysis. 6. 6. Patient informed of the above results. Stress Echo Findings Left Ventricle Appropriate increase in LV endocardial thickening with systole. Appropriate augmentation of contractility with systole. No wall motioni abnormality. Left Ventricle Normal LV systolic function, no wall motion abnormality. Protocol: Ulisses Stress ECG Details Stage: REST Duration (min): 5 min : 54 sec Speed (mph): 0.0 Grade (%): 0 HR (bpm): 74 SBP (mmHg): 128 DBP (mmHg): 87 METS: --- Stage: REST Duration (min): 9 min : 21 sec Speed (mph): 0.0 Grade (%): 0 HR (bpm): 73 SBP (mmHg): 128 DBP (mmHg): 87 METS: --- Stage: STAGE 1 Duration (min): 1 min : 0 sec Speed (mph): 1.7 Grade (%): 10 HR (bpm): 99 SBP (mmHg): 128 DBP (mmHg): 87 METS: --- Stage: STAGE 1 Duration (min): 2 min : 0 sec Speed (mph): 1.7 Grade (%): 10 HR (bpm): 102 SBP (mmHg): 128 DBP (mmHg): 87 METS: --- Stage: STAGE 1 Duration (min): 3 min : 0 sec Speed (mph): 1.7 Grade (%): 10 HR (bpm): 101 SBP (mmHg): 128 DBP (mmHg): 87 METS: --- Stage: STAGE 2 Duration (min): 1 min : 0 sec Speed (mph): 2.5 Grade (%): 12 HR (bpm): 110 SBP (mmHg): 128 DBP (mmHg): 87 METS: --- Stage: STAGE 2 Duration (min): 2 min : 0 sec Speed (mph): 2.5 Grade (%): 12 HR (bpm): 110 SBP (mmHg): 206 DBP (mmHg): 64 METS: --- Stage: STAGE 2 Duration (min): 3 min : 0 sec Speed (mph): 2.5 Grade (%): 12 HR (bpm): 113 SBP (mmHg): 206 DBP (mmHg): 64 METS: --- Stage: STAGE 3 Duration (min): 1 min : 0 sec Speed (mph): 3.4 Grade (%): 14 HR (bpm): 122 SBP (mmHg): 169 DBP (mmHg): 82 METS: --- Stage: STAGE 3 Duration (min): 2 min : 0 sec Speed (mph): 3.4 Grade (%): 14 HR (bpm): 132 SBP (mmHg): 169 DBP (mmHg): 82 METS: --- Stage: STAGE 3 Duration (min): 3 min : 0 sec Speed (mph): 3.4 Grade (%): 14 HR (bpm): 137 SBP (mmHg): 172 DBP (mmHg): 79 METS: --- Stage: STA
== END 2023-05-29 08:37 | disposition home or self-care (01) ==
PROVIDERS: PCP Internal Medicine; Visit Provider Internal Medicine
DX: R07.9 Chest pain, unspecified (principal); R06.02 Shortness of breath
CPT/HCPCS: 93351